=== PATIENT | male | born 1990 | race Hispanic/Latino ===

== ENCOUNTER 2017-04-24 23:46 | Emergency (ER) | payer OTHER ==
[2017-04-24 23:58] VITALS: BP 136/70; PULSE 72; RESP 18; TEMP 98.2; O2SAT 99
[2017-04-25] MEDS ORDERED: TDAP Vaccine 0.5 mL Syr IM ONE (00:19)
--- NOTE | 2017-04-25 00:24 | ED PDOC ---
Arrival/HPI - General Chief Complaint: Finger,Hand,&Wrist Time Seen by Provider: 04/24/17 23:52 Historian: Patient - History of Present Illness Narrative History of Present Illness (Text): 04/25/17 00:19 26 year old male, last tetanus doesn't remember, nkda, complaining of lt. hand 5th digit finger injury x 1 hour at work. Pt. stated that he accidentally smashed by the steel bar, sustained the skin laceration, no numbness or tingling , no fever or chills, no headache or night sweat, no dizziness, no other medical or psychological complaints. Past Medical History - Provider Review Nursing Documentation Reviewed: Yes - Psychiatric Hx Substance Use: No Family/Social History - Physician Review Nursing Documentation Reviewed: Yes Family/Social History: Unknown Family HX Smoking Status: n Hx Alcohol Use: No Hx Substance Use: No Allergies/Home Meds Allergies/Adverse Reactions: Allergies No Known Allergies Allergy (Verified 04/24/17 23:58) Review of Systems - Review of Systems Constitutional: absent: Fatigue, Fevers Eyes: absent: Vision Changes ENT: absent: Hearing Changes Respiratory: absent: SOB, Cough Cardiovascular: absent: Chest Pain Gastrointestinal: absent: Abdominal Pain, Diarrhea, Nausea, Vomiting Musculoskeletal: Arthralgias, Myalgias. absent: Back Pain, Neck Pain, Joint Swelling Skin: Laceration. absent: Rash, Pruritis, Skin Lesions, Abscess, Ulcer, Cellulitis Neurological: absent: Headache, Dizziness Physical Exam Vital Signs Reviewed: Yes Vital Signs Temp Pulse Resp BP Pulse Ox 04/24/17 23:49 98.2 F 72 18 136/70 99 Temperature: Afebrile Blood Pressure: Normal Pulse: Regular Respiratory Rate: Normal Appearance: Positive for: Well-Appearing, Non-Toxic Pain Distress: Moderate Mental Status: Positive for: Alert and Oriented X 3 - Systems Exam Head: Present: Atraumatic, Normocephalic Pupils: Present: PERRL Extroacular Muscles: Present: EOMI Conjunctiva: Present: Normal Mouth: Present: Moist Mucous Membranes Neck: Present: Normal Range of Motion Respiratory/Chest: Present: Clear to Auscultation, Good Air Exchange. No: Respiratory Distress, Accessory Muscle Use Cardiovascular: Present: Regular Rate and Rhythm, Normal S1, S2. No: Murmurs Abdomen: Present: Normal Bowel Sounds. No: Tenderness, Distention, Peritoneal Signs Back: Present: Normal Inspection Upper Extremity: Present: Normal Inspection, Other (Lt. hand 5th digit: visible skin tearing type laceration approx. 2cm involving the lateral aspect of the nail border, +ttp on the distal tuft region, no subungal hematoma, FROM without limitation, sensation intact, motor 5/5, +radial pulse, capillary refill< 2 seconds, neurovascular intact, mild abrasion noted as well. ). No: Cyanosis, Edema Lower Extremity: Present: Normal Inspection. No: Edema Neurological: Present: GCS=15, CN II-XII Intact, Speech Normal Skin: Present: Warm, Dry, Normal Color. No: Rashes Psychiatric: Present: Alert, Oriented x 3, Normal Insight, Normal Concentration Medical Decision Making ED Course and Treatment: 04/25/17 00:22 -tdap/keflex (recommend IV ancef but the patient refused, risk and benefits explained)/motrin/finger splint -sensation intact, motor 5/5, wound irrigate with normal saline 1000cc, clean with betadine, 1% lidocaine digital block the injured finger with 1.5cc, 5-0 nylon made 5 sutures, hemostasis obtained, bacitracin and gauze dressing applied , sensation intact, motor 5/5, less than 2cc of blood loss. 04/25/17 01:20 -Discharge home with keflex, motrin, bacitracin oinment, finger splint, keep the dressing on and dry for 48 hours, sutures need to be removed by day 12-13, avoid strenuous exercise or activity, follow up with your own pmd and hand specialist within 2 days, return to the ER for any new or worsening signs or symptoms. - RAD Interpretation Radiology Orders: 04/25/17 00:18 HAND LEFT 5TH DIGIT (FINGER) [RAD] Stat minimal distal 5th pink tuft fracture. Accounts Specialist: Radiologist - Medication Orders Current Medication Orders: Discontinued Medications Cephalexin Monohydrate (Keflex) 500 mg PO STAT STA PRN Reason: Protocol Stop: 04/25/17 00:19 Last Admin: 04/25/17 00:34 Dose: 500 mg Ibuprofen (Motrin Tab) 800 mg PO STAT STA Stop: 04/25/17 00:19 Last Admin: 04/25/17 00:34 Dose: 800 mg Tetanus/Reduced Diphtheria/Acell Pertussis (Boostrix Vaccine Inj) 0.5 ml IM .ONCE ONE Stop: 04/25/17 00:20 Last Admin: 04/25/17 00:34 Dose: 0.5 ml - PA / [employer]IC HELPER / Resident Statement MD/DO has reviewed & agrees with the documentation as recorded. Disposition/Present on Arrival - Present on Arrival Any Indicators Present on Arrival: No History of DVT/PE: No History of Uncontrolled Diabetes: No Urinary Catheter: No History of Decub. Ulcer: No History Surgical Site Infection Following: None - Disposition Have Diagnosis and Disposition been Completed?: Yes Diagnosis: Finger injury, Finger laceration, Finger fracture Disposition: HOME/ ROUTINE Disposition Time: 00:24 Patient Plan: Discharge Condition: IMPROVED Additional Instructions: -Discharge home with keflex, motrin, bacitracin oinment, finger splint, keep the dressing on and dry for 48 hours, sutures need to be removed by day 12-13, avoid strenuous exercise or activity, follow up with your own pmd and hand specialist within 2 days, return to the ER for any new or worsening signs or symptoms. Prescriptions: Bacitracin Zinc Micronized [Bacitracin Zinc] 1 appful TOP BID #15 g Cephalexin [cephalexin] 500 mg PO QID #40 cap Ibuprofen [Motrin] 600 mg PO QID PRN #24 tab PRN Reason: Other Referrals: Trent Rodríguez III, MD [Medical Doctor] - Follow up with primary Forms: [employer] [facility] ([facility]), WORK NOTE
--- NOTE | 2017-04-25 10:56 | RAD ---
PROCEDURE: Left Hand Radiographs. HISTORY: lt. hand 5th digit laceration and injury COMPARISON: None. FINDINGS: BONES: Normal. No fracture. JOINTS: Normal. No osteoarthritic changes. SOFT TISSUES: Normal. OTHER FINDINGS: None. IMPRESSION: Normal left hand radiographs.
== END 2017-04-25 01:32 | disposition home or self-care (01) ==
LOC: ED 23:46
DX: S62.637A Displaced fracture of distal phalanx of left little finger, initial encounter for closed fracture (principal); S61.217A Laceration without foreign body of left little finger without damage to nail, initial encounter; W22.8XXA Striking against or struck by other objects, initial encounter; Y93.89 Activity, other specified; Y92.89 Other specified places as the place of occurrence of the external cause; Z23 Encounter for immunization